=== PATIENT | female | born 1990 | race Caucasian/White ===

== ENCOUNTER 2017-03-09 17:34 | Inpatient (IN) | payer OTHER ==
[2017-03-09 18:17] LABS: ADD MAN DIFF? NO
[2017-03-09 18:18] LABS: BASOPHILS % 0.3 % (0.0-2.0); EOSINOPHILS % 0.3 % (0.0-7.0); HEMOGLOBIN 12.1 g/dl (12.0-16.0); LYMPHOCYTES # 2.7 10^3/ul (0.8-2.9); LYMPHOCYTES % 27.9 % (15.0-51.0); MEAN CORPUSCULAR HEMOGLOBIN 27.5 pg (29.0-33.0); MEAN CORPUSCULAR HGB CONC 33.6 g/dl (32.0-37.0); MEAN CORPUSCULAR VOLUME 81.8 fl (82.0-101.0); MEAN PLATELET VOLUME 11.1 fl (7.4-10.4); MONOCYTE # 0.5 10^3/ul (0.3-0.9); MONOCYTES % 5.2 % (0.0-11.0); NEUTROPHIL # 6.3 10^3/ul (1.6-7.5); NEUTROPHILS % 65.8 % (39.0-77.0); PLATELET COUNT 329 10^3/UL (140-415); RED CELL DISTRIBUTION WIDTH 12.5 % (11.5-14.5)
[2017-03-09 18:18] LABS: WHITE BLOOD COUNT 9.6 10^3/ul (4.8-10.8)
[2017-03-09 18:35] LABS: PROTIME 12.2 Sec (11.9-14.9)
[2017-03-09 18:39] LABS: ALANINE AMINOTRANSFERASE 23 IU/L (13-69); ALBUMIN 3.1 g/dl (3.3-4.9); ALKALINE PHOSPHATASE 206 IU/L (42-121); ANION GAP 14 (8-16); ASPARTATE AMINO TRANSFERASE 21 IU/L (15-46); BILIRUBIN,INDIRECT 0.2 mg/dl (0-1.1); BILIRUBIN,TOTAL 0.2 mg/dl (0.2-1.3); BLOOD UREA NITROGEN 15 mg/dl (7-20); CALCIUM 8.9 mg/dl (8.4-10.2); CARBON DIOXIDE 20 mmol/L (21-31); CHLORIDE 106 mmol/L (97-110); CREATININE 0.56 mg/dl (0.44-1.00); GLUCOSE 81 mg/dl (70-220); POTASSIUM 4.1 mmol/L (3.5-5.1); SODIUM 136 mmol/L (135-144); TOTAL PROTEIN 6.2 g/dl (6.1-8.1); URIC ACID 6.3 mg/dl (3.1-7.9)
[2017-03-09 18:59] LABS: ADD UMIC YES; UR AMORPHOUS CRYSTAL FEW /HPF (NONE SEEN); UR ASCORBIC ACID NEGATIVE (NEGATIVE); UR BACTERIA FEW /HPF (NONE SEEN); UR BILIRUBIN (Dip) NEGATIVE (NEGATIVE); UR BLOOD (Dip) NEGATIVE (NEGATIVE); UR CLARITY SLIGHTLY CLOUDY (CLEAR); UR COLOR YELLOW (YELLOW); UR GLUCOSE (Dip) NEGATIVE (NEGATIVE); UR KETONES (Dip) TRACE mg/dL (NEGATIVE); UR LEUKOCYTE ESTERASE (Dip) TRACE Leu/ul (NEGATIVE); UR MUCUS FEW /HPF (NONE SEEN); UR NITRITE (Dip) NEGATIVE (NEGATIVE); UR RBC 1 /HPF (0-5); UR SPECIFIC GRAVITY (Dip) 1.025 (1.003-1.030); UR SQUAMOUS EPITHELIAL CELL MODERATE /HPF (FEW); UR TOTAL PROTEIN (Dip) 2+ mg/dl (NEGATIVE); UR UROBILINOGEN (Dip) NEGATIVE (NEGATIVE); UR WBC 4 /HPF (0-5)
[2017-03-09 19:12] LABS: AMPHETAMINE/METHAMPHETAMINE Negative (NEGATIVE)
[2017-03-09 19:13] LABS: BARBITURATES Negative (NEGATIVE); BENZODIAZEPINES Negative (NEGATIVE); OPIATES Negative (NEGATIVE)
[2017-03-09 19:15] LABS: CANNABINOIDS Negative (NEGATIVE); COCAINE Negative (NEGATIVE)
[2017-03-09] MEDS ORDERED: MAGNESIUM SULFATE 4 GM/100 ML 100 ML (19:36)
[2017-03-09] MEDS ORDERED: BETAMET NA PHOS/AC(6 MG/ML) 5ML INJ (19:36)
[2017-03-09] MEDS ORDERED: MAGNESIUM SULFATE 20 GM/500 ML 500 ML IV (19:36)
[2017-03-09] MEDS: LACTATED RINGER'S 1,000 ML IV (19:54)
[2017-03-09] MEDS: MAGNESIUM SULFATE 4 GM/100 ML 100 ML IV (19:56)
[2017-03-09] MEDS ORDERED: ONDANSETRON 4 MG INJ IV (20:00)
[2017-03-09] MEDS ORDERED: ACETAMINOPHEN 325 MG TAB PO (20:00)
[2017-03-09] MEDS: MAGNESIUM SULFATE 20 GM/500 ML 500 ML IV (20:28)
[2017-03-09] MEDS: BETAMET NA PHOS/AC(6 MG/ML) 5ML INJ IM (20:36)
[2017-03-09 20:54] LABS: HEPATITIS B SURFACE ANTIGEN NEGATIVE (NEGATIVE)
[2017-03-09] MEDS: LABETALOL HCL 20MG INJ IV (21:34)
[2017-03-10 01:46] LABS: MAGNESIUM 4.8 mg/dl (1.7-2.5)
[2017-03-10] MEDS ORDERED: CA CHLORIDE 10% 10 ML SYRINGE (07:00)
[2017-03-10 08:28] LABS: MAGNESIUM 5.2 mg/dl (1.7-2.5)
[2017-03-10] MEDS: MAGNESIUM SULFATE 20 GM/500 ML 500 ML IV ×3 (08:46→19:52)
[2017-03-10] MEDS: LACTATED RINGER'S 1,000 ML IV (08:48)
[2017-03-10] MEDS ORDERED: FERROUS SULFATE (EC) 325 MG TAB PO (09:00)
[2017-03-10] MEDS ORDERED: PRENATAL VITAMIN PO (09:00)
[2017-03-10] MEDS ORDERED: CARBOPROST 250 MCG INJ IM ×2 (10:30→17:30)
[2017-03-10] MEDS ORDERED: OXYTOCIN 30 UNITS/LR 500 ML IV ×2 (10:30→17:30)
[2017-03-10] MEDS ORDERED: MISOPROSTOL 200 MCG TAB PR ×2 (10:30→17:30)
[2017-03-10] MEDS ORDERED: LIDOCAINE 1% (MPF) 30 ML INJ INJ (10:30)
[2017-03-10] MEDS ORDERED: METHYLERGONOVINE 0.2 MG INJ IM ×2 (10:30→17:30)
[2017-03-10] MEDS: BETAMET NA PHOS/AC(6 MG/ML) 5ML INJ IM (11:13)
[2017-03-10] MEDS: FAMOTIDINE 20 MG INJ IV (11:28)
[2017-03-10] MEDS: ONDANSETRON 4 MG INJ IV (11:28)
[2017-03-10] MEDS: METOCLOPRAMIDE 10 MG INJ IV (11:28)
[2017-03-10] MEDS ORDERED: morphine SULFATE/PF (10 MG/10 ML) INJ (12:24)
[2017-03-10] MEDS: CLINDAMYCIN 900 MG/D5W (PMX) 50 ML IVPB ×2 (12:25→19:44)
[2017-03-10] MEDS ORDERED: LABETALOL 200 MG TAB PO (14:00)
[2017-03-10 14:03] LABS: ADD MAN DIFF? NO
[2017-03-10] MEDS: OXYTOCIN 30 UNITS/LR 500 ML IV ×5 (14:06→23:31)
[2017-03-10 14:07] LABS: BASOPHILS % 0.1 % (0.0-2.0); HEMATOCRIT 34.6 % (37.0-47.0); HEMOGLOBIN 11.7 g/dl (12.0-16.0); LYMPHOCYTES % 15.8 % (15.0-51.0); MEAN CORPUSCULAR HEMOGLOBIN 27.7 pg (29.0-33.0); MEAN CORPUSCULAR HGB CONC 33.8 g/dl (32.0-37.0); MEAN CORPUSCULAR VOLUME 81.8 fl (82.0-101.0); MONOCYTE # 0.2 10^3/ul (0.3-0.9); MONOCYTES % 1.7 % (0.0-11.0); NEUTROPHIL # 10.2 10^3/ul (1.6-7.5); NEUTROPHILS % 81.4 % (39.0-77.0); PLATELET COUNT 331 10^3/UL (140-415); RED BLOOD COUNT 4.23 10^6/ul (4.20-5.40)
[2017-03-10 14:07] LABS: WHITE BLOOD COUNT 12.6 10^3/ul (4.8-10.8)
[2017-03-10 14:22] LABS: PARTIAL THROMBOPLASTIN TIME 26.5 Sec (25.0-35.0); PROTIME 13.3 Sec (11.9-14.9)
[2017-03-10 14:23] LABS: MAGNESIUM 4.8 mg/dl (1.7-2.5)
[2017-03-10 14:42] LABS: RAPID PLASMA REAGIN NONREACTIVE (NR)
[2017-03-10] MEDS ORDERED: HYDROmorphONE 1 MG/ML SYG IV (15:00)
[2017-03-10] MEDS ORDERED: ONDANSETRON 4 MG INJ IV (15:00)
[2017-03-10] MEDS ORDERED: DIPHENHYDRAMINE 50 MG INJ IV (15:00)
[2017-03-10] MEDS ORDERED: NALOXONE (0.4 MG/ML) INJ IV (15:00)
[2017-03-10] MEDS ORDERED: HYDROmorphONE 0.5 MG/0.5 ML SYG IV (15:00)
[2017-03-10] MEDS: CEFAZOLIN 1 GM/50 ML (PMX) 50 ML IVPB (17:30)
[2017-03-10] MEDS ORDERED: OXYCODONE/ACETAMINOPHEN (5/325) TAB PO ×2 (17:30)
[2017-03-10] MEDS ORDERED: HYDROCODONE/APAP (5/325) TAB PO ×2 (17:30)
[2017-03-10] MEDS: IBUPROFEN 600 MG TAB PO (18:00)
[2017-03-10 19:27] LABS: MAGNESIUM 5.3 mg/dl (1.7-2.5)
[2017-03-10] MEDS: LABETALOL 200 MG TAB PO (21:00)
[2017-03-10] MEDS: SENNA/DOCUSATE NA (8.6MG/50MG) TAB PO (21:00)
[2017-03-11 00:53] LABS: MAGNESIUM 5.5 mg/dl (1.7-2.5)
[2017-03-11] MEDS: OXYTOCIN 30 UNITS/LR 500 ML IV ×5 (05:14→21:14)
[2017-03-11] MEDS: IBUPROFEN 600 MG TAB PO ×5 (06:00→23:53)
[2017-03-11] MEDS: MAGNESIUM SULFATE 20 GM/500 ML 500 ML IV (06:21)
[2017-03-11 08:07] LABS: ADD MAN DIFF? NO
[2017-03-11 08:16] LABS: WHITE BLOOD COUNT 20.1 10^3/ul (4.8-10.8)
[2017-03-11 08:16] LABS: BASOPHILS % 0.1 % (0.0-2.0); HEMATOCRIT 30.9 % (37.0-47.0); HEMOGLOBIN 10.4 g/dl (12.0-16.0); LYMPHOCYTES % 9.7 % (15.0-51.0); MEAN CORPUSCULAR HEMOGLOBIN 27.6 pg (29.0-33.0); MEAN CORPUSCULAR HGB CONC 33.7 g/dl (32.0-37.0); MONOCYTE # 0.9 10^3/ul (0.3-0.9); MONOCYTES % 4.5 % (0.0-11.0); NEUTROPHIL # 17.1 10^3/ul (1.6-7.5); NEUTROPHILS % 84.9 % (39.0-77.0); PLATELET COUNT 337 10^3/UL (140-415); RED BLOOD COUNT 3.77 10^6/ul (4.20-5.40); RED CELL DISTRIBUTION WIDTH 12.9 % (11.5-14.5)
[2017-03-11 08:37] LABS: MAGNESIUM 5.2 mg/dl (1.7-2.5)
[2017-03-11] MEDS: LABETALOL 200 MG TAB PO ×2 (09:00→21:00)
[2017-03-11] MEDS: SENNA/DOCUSATE NA (8.6MG/50MG) TAB PO ×2 (09:27→21:13)
[2017-03-11] MEDS: CLINDAMYCIN 900 MG/D5W (PMX) 50 ML IVPB ×3 (11:54→23:53)
[2017-03-12] MEDS: OXYTOCIN 30 UNITS/LR 500 ML IV ×6 (01:14→21:14)
[2017-03-12] MEDS: CLINDAMYCIN 900 MG/D5W (PMX) 50 ML IVPB ×4 (05:45→23:31)
[2017-03-12] MEDS: IBUPROFEN 600 MG TAB PO ×4 (05:45→23:31)
[2017-03-12 08:47] LABS: ADD MAN DIFF? NO
[2017-03-12] MEDS: SENNA/DOCUSATE NA (8.6MG/50MG) TAB PO ×2 (08:47→21:28)
[2017-03-12] MEDS: LABETALOL 200 MG TAB PO ×2 (08:47→21:28)
[2017-03-12 08:51] LABS: WHITE BLOOD COUNT 12.1 10^3/ul (4.8-10.8)
[2017-03-12 08:51] LABS: BASOPHILS % 0.2 % (0.0-2.0); EOSINOPHILS % 0.1 % (0.0-7.0); HEMATOCRIT 31.5 % (37.0-47.0); HEMOGLOBIN 10.2 g/dl (12.0-16.0); LYMPHOCYTES # 2.9 10^3/ul (0.8-2.9); MEAN CORPUSCULAR HGB CONC 32.4 g/dl (32.0-37.0); MEAN CORPUSCULAR VOLUME 83.3 fl (82.0-101.0); MEAN PLATELET VOLUME 10.7 fl (7.4-10.4); MONOCYTE # 0.9 10^3/ul (0.3-0.9); MONOCYTES % 7.8 % (0.0-11.0); NEUTROPHIL # 8.1 10^3/ul (1.6-7.5); NEUTROPHILS % 66.8 % (39.0-77.0); NUCLEATED RED BLOOD CELLS% 0.3 /100WBC (0.0-0.0); PLATELET COUNT 323 10^3/UL (140-415); RED BLOOD COUNT 3.78 10^6/ul (4.20-5.40); RED CELL DISTRIBUTION WIDTH 13.1 % (11.5-14.5)
[2017-03-12] MEDS: LANOLIN 7 GM TUBE TOP (18:38)
[2017-03-13] MEDS: OXYTOCIN 30 UNITS/LR 500 ML IV ×2 (01:14→05:14)
[2017-03-13] MEDS: CLINDAMYCIN 900 MG/D5W (PMX) 50 ML IVPB (05:46)
[2017-03-13] MEDS: IBUPROFEN 600 MG TAB PO ×2 (05:46→11:55)
[2017-03-13] MEDS: SENNA/DOCUSATE NA (8.6MG/50MG) TAB PO (08:40)
[2017-03-13] MEDS: LABETALOL 200 MG TAB PO (08:40)
[2017-03-13] MEDS: DIPHTH/TET/ACEL PERTUSS (ADULT) 0.5 ML VIAL IM* (08:41)
== END 2017-03-13 14:10 | disposition home or self-care (01) | DRG 765 ==
LOC: OBT 17:34 → L-D 03-10 00:57 → OBT 19:30 → L-D 03-10 12:20 → PP1 03-10 17:12
PROC: 10D00Z1 Extraction of Products of Conception, Low, Open Approach (ICD-10-PCS; principal; 2017-03-10 12:30)
DX: O60.14X2 Preterm labor third trimester with preterm delivery third trimester, fetus 2 (principal); O30.003 Twin pregnancy, unspecified number of placenta and unspecified number of amniotic sacs, third trimester; O13.4 Gestational [pregnancy-induced] hypertension without significant proteinuria, complicating childbirth; Z3A.34 34 weeks gestation of pregnancy; Z37.2 Twins, both liveborn
CPT/HCPCS: 76815; 76816; 76818; 80053; 80307; 81001; 83735; 84560; 85025; 85384; 85610; 85730; 86592; 86900; 86901; 87340; 88307; 90715; 99464